=== PATIENT | male | born 1970 | race Caucasian/White ===

== ENCOUNTER 2017-02-10 16:42 | Emergency (ER) | payer SELFPAY ==
[~2017-02-10] VITALS: Ht 175.3 cm; Wt 70.0 kg
[2017-02-10] MEDS ORDERED: IBUPROFEN 600MG TABLET PO ONE (18:00)
[2017-02-10 19:15] VITALS: BP 126/80
== END 2017-02-10 20:30 | disposition home or self-care (01) ==
LOC: ER 17:57
DX: S52.502A Unspecified fracture of the lower end of left radius, initial encounter for closed fracture (principal); S52.501A Unspecified fracture of the lower end of right radius, initial encounter for closed fracture; W11.XXXA Fall on and from ladder, initial encounter; Y93.89 Activity, other specified; Y99.8 Other external cause status; Y92.89 Other specified places as the place of occurrence of the external cause
CPT/HCPCS: 29125; 73110; 99284